=== PATIENT | male | born 1995 | race Caucasian/White ===

== ENCOUNTER 2021-01-17 07:14 | Emergency (ER) | payer OTHER ==
[2021-01-17] MEDS ORDERED: NAPROXEN500 MG PO (08:17)
== END 2021-01-17 09:26 | disposition home or self-care (01) ==
LOC: FER 07:14
DX: S83.421A Sprain of lateral collateral ligament of right knee, initial encounter (principal); F17.290 Nicotine dependence, other tobacco product, uncomplicated; X50.1XXA Overexertion from prolonged static or awkward postures, initial encounter; Y92.89 Other specified places as the place of occurrence of the external cause; Y99.0 Civilian activity done for income or pay
CPT/HCPCS: 73564